=== PATIENT | female | born 1980 | race Caucasian/White ===

== ENCOUNTER 2018-09-09 10:38 | Emergency (ER) | payer OTHER ==
--- NOTE | 2018-09-09 11:07 | EDPHY ---
H & P Stated Complaint: left flank pain, diagnosed with kindey stone 09/08 fever at home today Time Seen by Provider: 09/09/18 11:07 HPI/ROS: HPI: This is a 38-year-old female who presents with Chief Complaint: left flank pain, diagnosed with kidney stone 09/08 fever at home today Location: Left flank Quality: Pain Duration: Since Friday Signs and Symptoms: no fever, no nausea, no vomiting, no hematemesis, no blood in stool, no abdominal bloating, no diarrhea, no back pain, + urinary frequency , + blood in urine, no vaginal bleeding/discharge, no indigestion, no chest pain , no shortness of breath Timing: Acute, intermittent Severity: [id number] Context: Patient presents with complaints of left flank pain that has persisted and now moved into her left groin area accompanied by urinary frequency and blood in her urine. She reports that the pain is now in her left groin area and she believes that it may have moved and she is going to pass the stone soon. She is originally from [place] and was seen at the urgent care. She had a urinalysis that showed blood in her urine and she was diagnosed with a kidney stone. She was given Percocet and took 1 yesterday 3: 00 p.m. and 1 last night at 9:00 p.m. With transient relief of pain. She has been pushing fluids and urinating frequently. Her last kidney stone was approximately 5 years ago. She no longer has urologist. Last night she felt warm to touch that was a subjective fever. Denies any chills, back pain. Friday she did help her mfloja-ed-sow move. Last menstrual period was 2-3 weeks ago. Modifying Factors: See above Comment: ROS: A comprehensive 10 system review of systems is otherwise negative aside from elements mentioned in the history of present illness. MEDICAL/SURGICAL/SOCIAL HISTORY: Medical history: Generally healthy. Does not take any regular medications. LMP 2-3 weeks ago. Surgical history: Denies Social history: Nonsmoker. Family history noncontributory. CONSTITUTIONAL: Nontoxic-appearing, middle-aged white female, polite and cooperative, awake and alert, no obvious distress HEENT: Atraumatic and normocephalic, PERRL, EOMI. Nares patent; no rhinorrhea; no nasal mucosal edema. Tympanic membranes clear. Oropharynx clear, no exudate and moist pink mucosa. Airway patent. No lymphadenopathy. No meningismus. Cardiovascular: Normal S1/S2, regular rate, regular rhythm, without murmur rub or gallop. PULMONARY/CHEST: Symmetrical and nontender. Clear to auscultation bilaterally. Good air movement. No accessory muscle usage. Back: Midthoracic paraspinous muscles are reproducible tenderness with palpation; no paraspinous spasm; no midline tenderness; no pain with straight leg raise. ABDOMEN: Soft, nondistended, nontender, no rebound, no guarding, no peritoneal signs, no masses or organomegaly. Left CVAT. Bowel sounds heard x4 quadrants. EXTREMITIES: 2/2 pulses, strength 5/5, no deformities, no clubbing, no cyanosis or edema. NEUROLOGICAL: no focal neuro deficits. GCS 15. SKIN: Warm and dry, no erythema. no rash. Good capillary refill. Source: Patient Exam Limitations: No limitations - Personal History LMP (Females 10-55): 22-28 Days Ago Current Tetanus Diphtheria and Acellular Pertussis (TDAP): Yes - Medical/Surgical History Hx Asthma: No Hx Chronic Respiratory Disease: No Hx Diabetes: No Hx Cardiac Disease: No Hx Renal Disease: No Hx Cirrhosis: No Hx Alcoholism: No Hx HIV/AIDS: No Hx Splenectomy or Spleen Trauma: No Other PMH: none - Social History Smoking Status: Never smoked Constitutional: Initial Vital Signs Temperature (C) 37.5 C 09/09/18 10:48 Heart Rate 97 09/09/18 10:48 Respiratory Rate 16 09/09/18 10:48 Blood Pressure 109/64 09/09/18 10:48 O2 Sat (%) 97 09/09/18 10:48 O2 Delivery Mode Room Air Allergies/Adverse Reactions: No Known Allergies Allergy (Unverified 08/17/15 13:33) Home Medications: Medication Instructions Recorded Hydrocodone/APAP 5/325 [[place] 1 - 2 tab PO Q4 PRN #30 tab 08/21/15 5/325 (*)] Ibuprofen [Motrin (*)] 600 mg PO Q6 PRN #30 tab 08/21/15 Fenymor 09/09/18 Nitrofurantoin Macrobid [Macrobid] 100 mg PO BID #14 cap 09/09/18 Terbinafine 09/09/18 Medical Decision Making - Diagnostics Imaging Results: Imaging Impressions Abdomen/Pelvis CT 09/09/18 11:12 Impression: 1. Mild left hydroureteronephrosis without evidence of definite obstructing ureteral calculus. Differential diagnosis includes a left urinary tract infection versus recently passed left ureterolithiasis. A ureteral neoplasm cannot be excluded and therefore consider urology consult for additional follow up. 2. Nonobstructing right nephrolithiasis measuring 2 mm. 3. Mild constipation without bowel obstruction. Attention: This CT examination is specifically designed to evaluate patients who are clinically suspected of having acute obstructive uropathy. This examination does not use radiographic contrast, and as such, provides only a limited evaluation of the abdomen, pelvis and retroperitoneum. If there is further clinical suspicion for pathological conditions other than obstructive uropathy, a complete CT evaluation of the abdomen and pelvis utilizing intravenous, oral, and rectal contrast should be considered. Findings and recommendations discussed with Emergency Department physician, Soumya Daniels at 1230 hour, 09/09/2018. Final report concurs with initial preliminary interpretation. ED Course/Re-evaluation: Vital signs reviewed and stable upon arrival. No systemic signs. IV fluids 1 L normal saline, IV Toradol 30 mg, p.o. Flomax, laboratory studies, CT abdomen and pelvis scan without contrast ordered 1155: Urinalysis shows 2+ blood, 2+ LE, 5-10 WBCs; sent for urine culture Laboratory studies reviewed and show WBC of 11K with left shift, H&H 12.2/35.6, creatinine 0.8 1229: Called by Radiology, Dr. Hebert, who reports that CT abdomen and pelvis scan shows mild left hydroureteronephrosis that can be seen with urinary tract infection or recently passed stone. Patient given a prescription for Macrobid. Drinking fluids and eating Colt crackers without difficulty. Advised to establish care with Urology. This patient was seen under the supervision of my secondary supervising physician. I evaluated care for this patient independently. Discussed this patient with Dr. Xiong. Differential Diagnosis: Flank pain including but not limited to musculoskeletal causes, kidney stone, pyelonephritis, shingles, and intra-abdominal causes such as diverticulitis and appendicitis. - Data Points Laboratory Results: Laboratory Results 09/09/18 11:25 09/09/18 11:25 09/09/18 09/09/18 09/09/18 11:25 11:25 11:25 WBC 11.83 10^3/uL H 10^3/uL (3.80-9.50) RBC 3.92 10^6/uL L 10^6/uL (4.18-5.33) Hgb 12.2 g/dL L g/dL (12.6-16.3) Hct 35.6 % L % (38.0-47.0) MCV 90.8 fL fL (81.5-99.8) MCH 31.1 pg pg (27.9-34.1) MCHC 34.3 g/dL g/dL (32.4-36.7) RDW 12.2 % % (11.5-15.2) Plt Count 250 10^3/uL 10^3/uL (150-400) MPV 10.1 fL fL (8.7-11.7) Neut % (Auto) 75.8 % H % (39.3-74.2) Lymph % (Auto) 13.5 % L % (15.0-45.0) [place] % (Auto) 10.0 % % (4.5-13.0) Eos % (Auto) 0.1 % L % (0.6-7.6) Baso % (Auto) 0.2 % L % (0.3-1.7) Nucleat RBC Rel Count 0.0 % % (0.0-0.2) Absolute Neuts (auto) 8.97 10^3/uL H 10^3/uL (1.70-6.50) Absolute Lymphs (auto) 1.60 10^3/uL 10^3/uL (1.00-3.00) Absolute Monos (auto) 1.18 10^3/uL H 10^3/uL (0.30-0.80) Absolute Eos (auto) 0.01 10^3/uL L 10^3/uL (0.03-0.40) Absolute Basos (auto) 0.02 10^3/uL 10^3/uL (0.02-0.10) Absolute Nucleated RBC 0.00 10^3/uL 10^3/uL (0-0.01) Immature Gran % 0.4 % % (0.0-1.1) Immature Gran # 0.05 10^3/uL 10^3/uL (0.00-0.10) Sodium 134 mEq/L L mEq/L (135-145) Potassium 4.5 mEq/L mEq/L (3.3-5.0) Chloride 103 mEq/L mEq/L (97-110) Carbon Dioxide 23 mEq/l mEq/l (22-31) Anion Gap 8 mEq/L mEq/L (6-14) BUN 9 mg/dL mg/dL (7-23) Creatinine 0.8 mg/dL mg/dL (0.6-1.0) Estimated GFR > 60 Glucose 84 mg/dL mg/dL (70-100) Calcium 9.0 mg/dL mg/dL (8.5-10.4) Beta HCG, Qual NEGATIVE Urine Color Urine Appearance Urine pH Ur Specific [place] Urine Protein Urine Ketones Urine Blood Urine Nitrate Urine Bilirubin Urine Urobilinogen Ur Leukocyte Esterase Urine RBC Urine WBC Ur Epithelial Cells Urine Mucus Urine Glucose 09/09/18 11:05 WBC RBC Hgb Hct MCV MCH MCHC RDW Plt Count MPV Neut % (Auto) Lymph % (Auto) [place] % (Auto) Eos % (Auto) Baso % (Auto) Nucleat RBC Rel Count Absolute Neuts (auto) Absolute Lymphs (auto) Absolute Monos (auto) Absolute Eos (auto) Absolute Basos (auto) Absolute Nucleated RBC Immature Gran % Immature Gran # Sodium Potassium Chloride Carbon Dioxide Anion Gap BUN Creatinine Estimated GFR Glucose Calcium Beta HCG, Qual Urine Color COLORLESS Urine Appearance CLEAR Urine pH 7.0 (5.0-7.5) Ur Specific [place] < 1.001 L (1.002-1.030) Urine Protein NEGATIVE (NEGATIVE) Urine Ketones NEGATIVE (NEGATIVE) Urine Blood 2+ H (NEGATIVE) Urine Nitrate NEGATIVE (NEGATIVE) Urine Bilirubin NEGATIVE (NEGATIVE) Urine Urobilinogen NEGATIVE EU EU (0.2-1.0) Ur Leukocyte Esterase 2+ H (NEGATIVE) Urine RBC NONE SEEN /hpf /hpf (0-3) Urine WBC 5-10 /hpf H /hpf (0-3) Ur Epithelial Cells TRACE /lpf /lpf (NONE-1+) Urine Mucus TRACE /lpf /lpf (NONE-1+) Urine Glucose NEGATIVE (NEGATIVE) Medications Given: Discontinued Medications Sodium Chloride (Ns) 1,000 mls @ 0 mls/hr IV ONCE ONE; Wide Open PRN Reason: Protocol Stop: 09/09/18 11:13 Last Admin: 09/09/18 11:24 Dose: 1,000 mls Ketorolac Tromethamine (Toradol) 30 mg IVP EDNOW ONE Stop: 09/09/18 11:13 Last Admin: 09/09/18 11:25 Dose: 30 mg Nitrofurantoin Macrocrystals (Macrobid) 100 mg PO EDNOW ONE PRN Reason: Protocol Stop: 09/09/18 12:30 Last Admin: 09/09/18 12:39 Dose: 100 mg Tamsulosin HCl (Flomax) 0.4 mg PO EDNOW ONE Stop: 09/09/18 11:14 Last Admin: 09/09/18 11:18 Dose: 0.4 mg Departure - Departure Disposition: Home, Routine, Self-Care Clinical Impression: History of kidney stones, Lower urinary tract infection, acute Condition: Good Instructions: Nitrofurantoin (By mouth), Kidney Stones (ED), Urinary Tract Infection in Women (ED), Renal Colic (ED) Additional Instructions: Consume a minimum of 8-10 glasses of water or electrolyte fluid replacement drinks that include Gatorade, Powerade, Pedialyte. Take antibiotic as directed. Do not skip a dose. Take Tylenol 650 mg every 4 hours and/or Ibuprofen 600 mg every 8 hours with food as needed for pain. Establish care with Urology in the next 1-2 weeks. Referrals: PCP Not In,Judy [Medical Doctor] - As per Instructions Milton Wills MD [Medical Doctor] - As per Instructions Prescriptions: Nitrofurantoin Macrobid [Macrobid] 100 mg PO BID #14 cap
[2018-09-09] MEDS ORDERED: NS 1,000 ML IV ONE (11:12)
[2018-09-09] MEDS ORDERED: KETOROLAC 30 MG/1 ML SDV IVP ONE (11:12)
[2018-09-09] MEDS ORDERED: TAMSULOSIN HCL 0.4 MG CAP PO ONE (11:13)
[2018-09-09 11:37] LABS: PLATELET COUNT 250 10^3/uL (150-400)
[2018-09-09 12:10] VITALS: BP 124/59
[2018-09-09] MEDS ORDERED: NITROFURANTOIN MACROBID 100 MG CAP PO ONE (12:29)
== END 2018-09-09 12:43 | disposition home or self-care (01) ==
DX: N39.0 Urinary tract infection, site not specified (principal); E86.9 Volume depletion, unspecified; N20.0 Calculus of kidney; K59.00 Constipation, unspecified; N13.30 Unspecified hydronephrosis
CPT/HCPCS: 96374; J1885

== ENCOUNTER → 2018-09-24 | Outpatient (CLI) | payer OTHER | LOC: FIMAGING 15:06 | PROVIDERS: ATTEND Obstetrics & Gynecology | DX: R19.03 Right lower quadrant abdominal swelling, mass and lump (principal) ==

== ENCOUNTER → 2018-10-30 | Outpatient (CLI) | payer OTHER | LOC: FIMAGING 11:49 | PROVIDERS: ATTEND Obstetrics & Gynecology | DX: Z12.31 Encounter for screening mammogram for malignant neoplasm of breast (principal); Z80.3 Family history of malignant neoplasm of breast ==